=== PATIENT | male | born 1990 | race African-American/Black ===

== ENCOUNTER 2018-06-24 10:42 | Day surgery (SDC) | payer OTHER ==
[2018-06-24] VITALS (12 sets, daily range): BP systolic 101–150; BP diastolic 66–79
[~2018-06-24] VITALS: Ht 182.9 cm; Wt 124.7 kg
[~2018-06-24 10:42] MED LIST: [UNRECOGNIZED DRUG - OTHER] PO; ceFAZolin 1gm IVPB IVPB ONE; celeBREX 200mg Cap **SURGERY PATIENTS ONLY ORAL ONE; oxyCONTIN 20mg tab ORAL ONE
[2018-06-24] MEDS ORDERED: EPINEPHrine 1mg/1ml Amp ONE (11:47)
[2018-06-24] MEDS ORDERED: Zemuron 50mg/5ml Inj IV ONE (11:47)
[2018-06-24] MEDS ORDERED: Kenalog-40 1ml Vial ONE (11:47)
[2018-06-24] MEDS ORDERED: Bupivacaine w/Epi 0.5% 30ml Vial INJ ONE (11:47)
[2018-06-24] MEDS ORDERED: Ketorolac 30mg Inj ONE (11:47)
[2018-06-24] MEDS ORDERED: oxyCONTIN 20mg tab ORAL ONE (11:56)
[2018-06-24] MEDS ORDERED: celeBREX 200mg Cap **SURGERY PATIENTS ONLY ORAL ONE (11:56)
[2018-06-24] MEDS ORDERED: Sterile Water Irrig 1000ml IRRIG ONE (12:30)
[2018-06-24] MEDS ORDERED: NS Irrig 4000ml IRRIG ONE ×2 (12:30→12:45)
[2018-06-24] MEDS ORDERED: Glycopyrrolate 0.2mg/ml 1ml Vial ONE ×2 (12:30→13:54)
[2018-06-24] MEDS ORDERED: LR 1000ml ONE (12:30)
[2018-06-24] MEDS ORDERED: NS Irrig 1000ml ONE (12:30)
[2018-06-24] MEDS ORDERED: Midazolam 2mg/2ml Inj ONE (12:34)
[2018-06-24] MEDS ORDERED: fentaNYL 100 mcg/2 mL IV ONE (12:36)
--- NOTE | 2018-06-24 12:58 | Pre-Procedure Note/Attestation ---
Pre-Procedure Note/Attestation Complete Prior to Procedure Planned Procedure: left Procedure Narrative: shoulder arthroscopy, possible labral repair Attestation I attest that I discussed the nature of the procedure; its benefits; risks and complications; and alternatives (and the risks and benefits of such alternatives ), prior to the procedure, with the patient (or the patient's legal compliance representative). I attest that, if there was a reasonable possibility of needing a blood transfusion, the patient (or the patient's legal compliance representative) was given the [facility] standardized written summary, pursuant to the [place] Blood Safety Act ([place] Health and Safety Code # 1645, as amended). I attest that I re-evaluated the patient just prior to the surgery and that there has been no change in the patient's H&P, except as documented below: Mendoza Cho MD Jun 24, 2018 12:58
--- NOTE | 2018-06-24 12:59 | Operative Note - PDOC ---
Operative Note Operative Note Pre-op Diagnosis: left shoulder labral tear Procedure: see op report Post-op Diagnosis: same as pre-op plus Operative Findings: consistent w/pre-op dx studies Anesthesia: regional Specimen: none Complications: none Condition: stable Estimated Blood Loss: none Implant(s) used?: No Mendoza Cho MD Jun 24, 2018 12:59
--- NOTE | 2018-06-24 12:59 | Pre-Procedure Note/Attestation ---
Pre-Procedure Note/Attestation Complete Prior to Procedure Planned Procedure: left Procedure Narrative: shoulder arthroscopy, possible slap repair Indications for Procedure Pre-Operative Diagnosis: left shoulder labral tear Attestation I attest that I discussed the nature of the procedure; its benefits; risks and complications; and alternatives (and the risks and benefits of such alternatives ), prior to the procedure, with the patient (or the patient's legal contact representative). I attest that, if there was a reasonable possibility of needing a blood transfusion, the patient (or the patient's legal contact representative) was given the [facility] standardized written summary, pursuant to the [place] Blood Safety Act ([place] Health and Safety Code # 1645, as amended). I attest that I re-evaluated the patient just prior to the surgery and that there has been no change in the patient's H&P, except as documented below: Mendoza Cho MD Jun 24, 2018 12:59
[2018-06-24] MEDS ORDERED: HYDROmorphone 1mg/ml Carpuject SUBQ PRN ×2 (13:00)
[2018-06-24] MEDS ORDERED: D5 1/2NS 1,000 ML IV SCH ×2 (13:00)
[2018-06-24] MEDS ORDERED: Tylenol #3 tab (300mg/30mg) ORAL PRN ×2 (13:00)
[2018-06-24] MEDS ORDERED: HYDROcodone/Acetamin 5/325 tab ORAL PRN ×2 (13:00)
[2018-06-24] MEDS ORDERED: fentaNYL 100 mcg/2 mL IV PRN ×2 (13:30)
[2018-06-24] MEDS ORDERED: Acetaminophen (Non formulary) 100 ML IV ONE (13:30)
[2018-06-24] MEDS ORDERED: Metoclopramide 10mg/2ml Inj IVP PRN (13:30)
[2018-06-24] MEDS ORDERED: Propofol 200mg/20ml IV ONE (13:39)
[2018-06-24] MEDS ORDERED: Ropivacaine 5mg/ml Vial 30ml INJ ONE (13:39)
[2018-06-24] MEDS ORDERED: Metoclopramide 10mg/2ml Inj ONE (13:39)
[2018-06-24] MEDS ORDERED: Neostigmine 1mg/ml 10ml Inj ONE (13:54)
[2018-06-24] MEDS ORDERED: Albuterol 90mcg Inhaler 8gm INH ONE (14:19)
--- NOTE | 2018-06-24 14:31 | Immediate Post-Op Evaluation ---
Immediate Post-Op Evalulation Immediate Post-Op Evalulation Procedure: left shoulder arthroscopy Date of Evaluation: Jun 24, 2018 Time of Evaluation: 14:30 IV Fluids: 600 Blood Pressure Systolic: 129 Blood Pressure Diastolic: 68 Pulse Rate: 79 Respiratory Rate: 14 O2 Sat by Pulse Oximetry: 97 Temperature (Fahrenheit): 97.5 Pain Score (1-10): 0 Nausea: No Vomiting: No Complications none Patient Status: awake, reacts, patent Hydration Status: adequate Drug: ancef Given Within 1 Hr of Incision: Yes Time Given: 13:00 Nicki He CRNA Jun 24, 2018 14:31
--- NOTE | 2018-06-24 14:33 | Anethesia Preoperative Eval ---
Anesthesia Pre-op PMH/ROS General Date of Evaluation: Jun 24, 2018 Time of Evaluation: 12:35 Anesthesiologist: irish ASA Score: ASA 3 Mallampati Score Class I : Soft palate, uvula, fauces, pillars visible Class II: Soft palate, uvula, fauces visible Class III: Soft palate, base of uvula visible Class IV: Only hard plate visible Mallampati Classification: Class II Surgeon: pierce Diagnosis: impingement Surgical Procedure: left shoulder arthoscopy Anesthesia History: none Social History: smoking, current smoker, alcohol use Family History: no anesthesia problems Allergies: Coded Allergies: No Known Allergies (Unverified , 06/23/18) Medications: see eMAR Patient NPO?: Yes NPO Date: Jun 24, 2018 NPO Time: 00:01 Past Medical History Cardiovascular: Denies: HTN, CAD, [place], valve dz, arrhythmia, other Pulmonary: Reports: asthma; Denies: COPD, REAGAN, other Gastrointestinal/Genitourinary: Denies: GERD, CRI, ESRD, other Neurologic/Psychiatric: Denies: dementia, CVA, depression/anxiety, TIA, other Endocrine: Denies: DM, hypothyroidism, steroids, other Hematology/Immune: Denies: anemia, DVT, bleeding disorder, other Other: obesity PSxH Narrative: none Anesthesia Pre-op Phys. Exam Physician Exam Last Vital Signs Date Time Temp Pulse Resp B/P (MAP) Pulse Ox O2 Delivery O2 Flow Rate FiO2 06/24/18 11:51 Room Air 06/24/18 11:49 97.8 70 18 150/72 99 Constitutional: NAD Neurologic: CN 2-12 intact Cardiovascular: RRR Respiratory: CTA Gastrointestinal: S/NT/ND Airway Exam Mallampati Classification 3 Mallampati Score: Class II MO: full Neck: thick ROM: full Dentures: no upper, no lower Anesthesia Pre-op A/P Studies Pre-op Studies: EKG - sr Risk Assessment & Plan Plan: general and ISB block Status Change Before Surgery: No Pre-Antibiotics Drug: ancef Given Within 1 Hr of Incision: Yes Time Given: 13:00 Nicki He CRNA Jun 24, 2018 14:33
--- NOTE | 2018-06-24 22:30 | Operative Note - Dictated ---
DATE OF OPERATION: 06/24/2018 PREOPERATIVE DIAGNOSIS: Left shoulder labral tear. POSTOPERATIVE DIAGNOSIS: Left shoulder labral tear. PROCEDURES: 1. Left shoulder diagnostic arthroscopy. 2. Left shoulder labral repair. SURGEON: Mendoza Cho M.D. ANESTHESIA: Interscalene with general. INDICATION FOR PROCEDURE: The patient is a pleasant gentleman who has had progressive left shoulder pain, despite conservative treatment elected to undergo left shoulder arthroscopy with possible labral repair. Risks, limitations, expectations, and complications of procedure were discussed in detail. All questions addressed. DESCRIPTION OF PROCEDURE: After informed consent was obtained, the patient was brought to the operative room. The patient was placed under interscalene general anesthesia. The patient was then carefully placed in the beach-chair position. Left shoulder was prepped and draped in a sterile manner. Time-out was performed. Posterolateral stab incision was then made. Trocar introduced into the glenohumeral joint. There was significant chondral damage and the anterior labrum was detached off the inferior margin extending into the inferior aspect of the glenoid. The superior labrum was intact. The subscapularis was intact. The undersurface rotator cuff was intact. At this point, two arthroscopic anchor was then placed to reattach the anterior labrum along the anterior inferior glenoid. Once that was completed, the camera was placed in the subacromial space. There was an mild bursitis given his age felt that acromioplasty or any subacromial work was done as necessary therefore the camera was removed. Portal sites were closed with 3-0 Monocryl sutures. Steri-Strips and a sterile dressing were applied. The patient awoken and taken to recovery room with stable vital signs. ESTIMATED BLOOD LOSS: None. COMPLICATIONS: None. SPECIMENS: None. Mendoza Cho M.D. DR: José Manuel JOB#: [id number] CC: LIBORIO
[2018-06-27 16:40] VITALS: BP 103/66
--- NOTE | 2018-06-27 16:41 | 48 Hour Post Anesthesia Eval ---
Post Anesthesia Evaluation Procedure: left shoulder arthroscopy Date of Evaluation: Jun 27, 2018 Time of Evaluation: 16:40 Blood Pressure Systolic: 103 0: 66 Pulse Rate: 75 Respiratory Rate: 14 O2 Sat by Pulse Oximetry: 97 Airway: patent Nausea: No Vomiting: No Hydration Status: adequate Cardiopulmonary Status: stable Mental Status/LOC: patient returned to baseline Post-Anesthesia Complications: none Follow-up care needed: N/A Nicki He CRNA Jun 27, 2018 16:40
== END 2018-06-24 16:35 | disposition home or self-care (01) ==
LOC: SDS 10:42
DX: S43.402A Unspecified sprain of left shoulder joint, initial encounter (principal); F17.200 Nicotine dependence, unspecified, uncomplicated; E66.9 Obesity, unspecified; Z68.37 Body mass index [BMI] 37.0-37.9, adult; X58.XXXA Exposure to other specified factors, initial encounter; Y92.9 Unspecified place or not applicable
CPT/HCPCS: 29806; J0171; J0690; J1885; J2250; J2405; J2704; J2710; J2765; J2795; J3010; J3301